=== PATIENT | male | born 1990 | race Caucasian/White ===

== ENCOUNTER → 2017-06-12 | Outpatient (CLI) | payer OTHER | LOC: COL.LAB 16:18 | DX: J02.9 Acute pharyngitis, unspecified (principal) ==

== ENCOUNTER 2018-05-10 12:36 | Emergency (ER) | payer BC ==
[~2018-05-10] VITALS: Ht 175.3 cm; Wt 77.3 kg
[2018-05-10 12:43] VITALS: TEMP 97.2
[2018-05-10] MEDS ORDERED: PROAIR HFA0.09 MG/AC IH ×2 (13:37→14:15)
[2018-05-10] MEDS ORDERED: CLARITIN 1010 MG/TAB PO (13:37)
[2018-05-10] MEDS ORDERED: MUCINEX 60600 MG/TA1 PO (13:38)
[2018-05-10] MEDS ORDERED: 00186-0372-20 IH (13:38)
[2018-05-10] MEDS ORDERED: PREDNISONE10 MG PO (14:11)
[2018-05-10 14:55] VITALS: BP 113/75; PULSE 110
== END 2018-05-10 14:55 | disposition home or self-care (01) ==
LOC: COL.ER 12:36
DX: J45.901 Unspecified asthma with (acute) exacerbation (principal); F32.9 Major depressive disorder, single episode, unspecified
CPT/HCPCS: J1040

== ENCOUNTER → 2018-08-12 | Outpatient (CLI) | payer BC ==
[~2018-08-12] MED LIST: 00186-0372-20 IH; CLARITIN 1010 MG/TAB PO; MUCINEX 60600 MG/TA1 PO; PREDNISONE10 MG PO; PROAIR HFA0.09 MG/AC IH
== END ==
LOC: COL.RAD 12:58
DX: N13.2 Hydronephrosis with renal and ureteral calculous obstruction (principal)

== ENCOUNTER → 2020-11-07 | Outpatient (CLI) | payer BC ==
--- NOTE | 2020-11-07 11:44 | NUR ---
PATIENT HAD CAFFIENE AND INHALER TODAY BEFORE APPOINTMENT AND WILL NEED TO RESCHEDULE. PAMPHLET GIVEN TO PATIENT.
== END ==
LOC: COL.PUL 10:37
DX: J45.40 Moderate persistent asthma, uncomplicated (principal)

== ENCOUNTER → 2020-11-17 | Outpatient (CLI) | payer BC | LOC: COL.PUL 07:56 | DX: J45.40 Moderate persistent asthma, uncomplicated (principal) ==